=== PATIENT | female | born 1955 | race Caucasian/White ===

== ENCOUNTER → 2017-12-05 | Outpatient (CLI) | payer OTHER ==
[~2017-12-05] MED LIST: CEFDINIR300 MG PO; DICYCLOMINE HCL20 MG PO; DICYCLOMINE HYD10 MG PO; DILANTIN100 MG PO; KEPPRA1000 MG PO; KEPPRA500 MG PO; LEVOTHYROXINE50 MCG PO; OXYBUTYNIN5 MG PO; PRILOSEC20 M1 PO; TEGRETOL-XR 40400 MG PO; VITAMIN D-32000 UNI1 PO; XANAX0.25 MG PO
[2017-12-05 17:26] LABS: BASO % 0.8 % (0.0-1.0); EOS # 0.2 10*3/uL (0.0-0.4); EOS % 4.6 % (1.0-4.0); HEMATOCRIT 36.2 % (37.0-47.0); HEMOGLOBIN 12.3 g/dl (12.0-16.0); LYMPH # 1.5 10*3/uL (1.3-4.4); LYMPH % 30.8 % (27.0-41.0); MEAN CELL VOLUME 92.8 fl (81.0-99.0); MEAN CORPUSCULAR HGB 31.5 pg (27.0-31.0); MEAN PLATELET VOLUME 10.4 fl (9.6-12.3); MONO # 0.7 10*3/uL (0.1-1.0); MONO % 13.1 % (3.0-9.0); NEUT # 2.5 10*3/uL (2.3-7.9); NEUT % 50.5 % (47.0-73.0); PLATELET COUNT AUTOMATED 248 10*3/uL (130-400); RED CELL DISTRI WIDTH 12.6 % (0-14.5); RETICULOCYTE % 0.82 % (0.50-2.50)
[2017-12-05 17:30] LABS: BILIRUBIN NEGATIVE (NEGATIVE); BLOOD NEGATIVE (NEGATIVE); CLARITY CLEAR (CLEAR); COLOR YELLOW (YELLOW); GLUCOSE NEGATIVE (NEGATIVE); KETONE NEGATIVE (NEGATIVE); LEUKO ESTERASE NEGATIVE (NEGATIVE); NITRITE NEGATIVE (NEGATIVE); PH 5.5 (5.0-9.0); UROBILINOGEN 0.2 E.U./dl (0.2-1.0)
[2017-12-05 17:42] LABS: ALBUMIN 3.8 gm/dl (3.1-4.5); ALKALINE PHOSPHATASE 135 U/L (45-117); BUN 17 mg/dl (7-24); CHLORIDE 96 mmol/L (98-107); CHOLESTEROL 255 mg/dL (<200); CREATININE 0.68 mg/dL (0.55-1.02); GAMMA GLUTAMYL TRANSPEPTIDASE 55 U/L (5-55); HDL CHOLESTEROL 82 mg/dl (40-60); IRON 99 ug/dL (50-170); LDL CHOLESTEROL 142 mg/dL (9-159); POTASSIUM 3.9 mmol/L (3.5-5.1); SGOT/AST 13 IU/L (3-35); SGPT/ALT 18 U/L (12-78); SODIUM 130 mmol/L (136-145); T3 UPTAKE 30 % (31-39); THYROXINE (T4) TOTAL 6.7 ug/dl (4.8-13.9); TOTAL IRON BINDING CAPACITY 342 ug/dl (250-450); TRIGLYCERIDES 157 mg/dl (<150); URIC ACID 1.5 mg/dL (2.6-6.0); VLDL CHOLESTEROL 31 mg/dL (6-40)
[2017-12-05 17:44] LABS: WBC 0-2 wbc/hpf (0-5)
[2017-12-05 17:49] LABS: FERRITIN 18.9 ng/mL (10.0-291.0); VITAMIN D, 25-HYDROXY 21.4 ng/mL (30-100)
[2017-12-06 06:16] LABS: HEPATITIS B SURFACE AG Negative (Negative); HEPATITIS C VIRUS ANTIBODY <0.1 s/co (0.0-0.9); HIV 1+2 AB + HIV1 P24 AG Non Reactive (Non Reactive)
[2017-12-06 08:07] LABS: CARBAMAZEPINE (TEGRETOL) TOTAL 15.8 ug/ml (4-12)
[2017-12-06 08:14] LABS: RHEUMATOID ARTHRITIS FACTOR <10.0 IU/mL (0.0-13.9)
[2017-12-06 14:09] LABS: ANTI-DSDNA ANTIBODIES 096339 <1 IU/mL (0-9)
[2017-12-09 01:08] LABS: LEVETIRACETAM (KEPPRA) 716936 None Detected ug/mL (10.0-40.0)
== END | disposition home or self-care (01) ==
LOC: LAB 16:23
PROVIDERS: Family Medicine
DX: E55.9 Vitamin D deficiency, unspecified (principal); R53.83 Other fatigue; R79.89 Other specified abnormal findings of blood chemistry

== ENCOUNTER 2017-12-06 09:40 | Inpatient (IN) | payer OTHER ==
[~2017-12-06] VITALS: Ht 165.1 cm; Wt 66.4 kg
[2017-12-06 09:49] VITALS: BP 111/66
[2017-12-06 11:30] LABS: BASO % 0.5 % (0.0-1.0); EOS # 0.1 10*3/uL (0.0-0.4); EOS % 1.7 % (1.0-4.0); HEMATOCRIT 38.3 % (37.0-47.0); HEMOGLOBIN 13.1 g/dl (12.0-16.0); LYMPH # 1.2 10*3/uL (1.3-4.4); LYMPH % 15.9 % (27.0-41.0); MEAN CELL VOLUME 91.4 fl (81.0-99.0); MEAN CORPUSCULAR HGB 31.3 pg (27.0-31.0); MEAN CORPUSCULAR HGB CONC 34.2 g/dl (33.0-37.0); MEAN PLATELET VOLUME 10.1 fl (9.6-12.3); MONO # 0.7 10*3/uL (0.1-1.0); MONO % 9.2 % (3.0-9.0); NEUT # 5.5 10*3/uL (2.3-7.9); NEUT % 72.4 % (47.0-73.0); PLATELET COUNT AUTOMATED 264 10*3/uL (130-400); RED BLOOD COUNT 4.19 10*6/uL (4.10-5.10); RED CELL DISTRI WIDTH 12.6 % (0-14.5); WHITE BLOOD COUNT 7.6 10*3/uL (4.8-10.8)
[2017-12-06 11:39] LABS: ACT PARTIAL THROMBO TIME 23.6 SECONDS (20.8-31.5)
[2017-12-06 11:47] LABS: ALKALINE PHOSPHATASE 147 U/L (45-117); BUN 12 mg/dl (7-24); CHLORIDE 99 mmol/L (98-107); CREATININE 0.67 mg/dL (0.55-1.02); LIPASE 191 U/L (73-393); POTASSIUM 3.9 mmol/L (3.5-5.1); SGOT/AST 14 IU/L (3-35); SGPT/ALT 17 U/L (12-78); SODIUM 130 mmol/L (136-145); TOTAL PROTEIN 8.1 gm/dL (6.4-8.2)
[2017-12-06 11:48] LABS: TROPONIN I < 0.015 ng/ml (<0.045)
[2017-12-06 12:09] LABS: BILIRUBIN NEGATIVE (NEGATIVE); BLOOD NEGATIVE (NEGATIVE); CLARITY CLOUDY (CLEAR); COLOR YELLOW (YELLOW); GLUCOSE NEGATIVE (NEGATIVE); KETONE NEGATIVE (NEGATIVE); LEUKO ESTERASE TRACE (NEGATIVE); NITRITE NEGATIVE (NEGATIVE); UROBILINOGEN 0.2 E.U./dl (0.2-1.0)
[2017-12-06] MEDS ORDERED: KEPPRA1000 MG PO (12:30)
[2017-12-06 12:31] LABS: BACTERIA 1+; EPITHELIAL CELLS 40-50
[2017-12-06] MEDS ORDERED: KEPPRA500 MG PO (12:31)
[2017-12-06] MEDS ORDERED: DILANTIN100 MG PO (12:32)
[2017-12-06] MEDS ORDERED: TEGRETOL-XR 40400 MG PO (12:32)
[2017-12-06] MEDS ORDERED: LEVOTHYROXINE50 MCG PO (12:33)
[2017-12-06] MEDS ORDERED: PRILOSEC20 M1 PO (12:33)
[2017-12-06] MEDS ORDERED: XANAX0.25 MG PO ×2 (12:34→14:40)
[2017-12-06] MEDS ORDERED: OXYBUTYNIN5 MG PO (12:37)
[2017-12-06 12:51] VITALS: BP 112/358
[2017-12-06 13:10] VITALS: BP 104/54
[2017-12-06] MEDS ORDERED: CEFDINIR300 MG PO (14:44)
[2017-12-06] MEDS ORDERED: DICYCLOMINE HCL20 MG PO (14:44)
[2017-12-06 15:21] LABS: URINE AMPHETAMINES < 1000 (1000ng/ml); URINE BARBITURATES < 200 (200ng/ml); URINE BENZODIAZEPINES < 200 (200ng/ml); URINE CANNABINOIDS (THC) < 50 (50ng/ml); URINE COCAINE < 300 (300ng/ml); URINE METHADONE < 300 (300ng/ml); URINE OPIATES < 300 (300ng/ml)
[2017-12-06 15:30] LABS: URINE PHENCYCLIDINE < 25 (25ng/ml)
[2017-12-06 16:00] VITALS: BP 136/68
[2017-12-06 20:00] VITALS: BP 144/50
[2017-12-07] VITALS: BP 123/96; BP 126/96
[2017-12-07 07:24] LABS: BASO % 0.5 % (0.0-1.0); EOS # 0.2 10*3/uL (0.0-0.4); EOS % 4.2 % (1.0-4.0); HEMATOCRIT 29.2 % (37.0-47.0); HEMOGLOBIN 9.5 g/dl (12.0-16.0); LYMPH # 0.9 10*3/uL (1.3-4.4); LYMPH % 21.4 % (27.0-41.0); MEAN CELL VOLUME 96.1 fl (81.0-99.0); MEAN CORPUSCULAR HGB 31.3 pg (27.0-31.0); MEAN CORPUSCULAR HGB CONC 32.5 g/dl (33.0-37.0); MEAN PLATELET VOLUME 10.7 fl (9.6-12.3); MONO # 0.7 10*3/uL (0.1-1.0); NEUT # 2.4 10*3/uL (2.3-7.9); NEUT % 57.7 % (47.0-73.0); PLATELET COUNT AUTOMATED 178 10*3/uL (130-400); RED BLOOD COUNT 3.04 10*6/uL (4.10-5.10); RED CELL DISTRI WIDTH 12.9 % (0-14.5); WHITE BLOOD COUNT 4.1 10*3/uL (4.8-10.8)
[2017-12-07 07:44] LABS: ACT PARTIAL THROMBO TIME 23.8 SECONDS (20.8-31.5); ALBUMIN 2.8 gm/dl (3.1-4.5); ALKALINE PHOSPHATASE 116 U/L (45-117); BUN 6 mg/dl (7-24); CHLORIDE 112 mmol/L (98-107); CREATININE 0.46 mg/dL (0.55-1.02); FREE T4 0.63 ng/dl (0.76-1.46); INTERNATIONAL NORM RATIO 1.1 (2.0-3.5); PHOSPHOROUS 2.3 mg/dL (2.5-4.9); SGOT/AST 14 IU/L (3-35); SGPT/ALT 14 U/L (12-78)
[2017-12-07 07:58] LABS: CARBAMAZEPINE (TEGRETOL) TOTAL 5.2 ug/ml (4-12); PHENYTOIN (DILANTIN) 13.5 ug/ml (10-20)
[2017-12-07 08:00] VITALS: BP 113/57
[2017-12-07 08:22] LABS: POTASSIUM 3.2 mmol/L (3.5-5.1); SODIUM 141 mmol/L (136-145)
[2017-12-07 12:00] VITALS: BP 133/61
[2017-12-07] MEDS ORDERED: DICYCLOMINE HYD10 MG PO (12:57)
[2017-12-07] MEDS ORDERED: VITAMIN D-32000 UNI1 PO (12:58)
[2017-12-07] MEDS ORDERED: TEGRETOL-XR 40400 MG PO (12:58)
== END 2017-12-07 16:45 | disposition home or self-care (01) | DRG 917 ==
LOC: ED 09:40 → 5E 12:43 → EDHOLD 12:43 → 5E 12:45
PROVIDERS: Internal Medicine; Nurse Practitioner Family
PROC: 05H933Z Insertion of Infusion Device into Right Brachial Vein, Percutaneous Approach (ICD-10-PCS; principal; 2017-12-06)
PROC: B54MZZA Ultrasonography of Right Upper Extremity Veins, Guidance (ICD-10-PCS; 2017-12-06)
DX: T42.1X1A Poisoning by iminostilbenes, accidental (unintentional), initial encounter (principal); G93.41 Metabolic encephalopathy; E87.1 Hypo-osmolality and hyponatremia; I95.9 Hypotension, unspecified; N39.0 Urinary tract infection, site not specified; E86.0 Dehydration; R73.9 Hyperglycemia, unspecified; G40.909 Epilepsy, unspecified, not intractable, without status epilepticus; F12.90 Cannabis use, unspecified, uncomplicated; W18.39XA Other fall on same level, initial encounter; Z91.040 Latex allergy status; Z88.8 Allergy status to other drugs, medicaments and biological substances; Z79.899 Other long term (current) drug therapy; Z98.51 Tubal ligation status; Z82.5 Family history of asthma and other chronic lower respiratory diseases; Z82.49 Family history of ischemic heart disease and other diseases of the circulatory system; Z82.3 Family history of stroke; Z88.5 Allergy status to narcotic agent; Z85.3 Personal history of malignant neoplasm of breast; Z92.3 Personal history of irradiation; Z92.21 Personal history of antineoplastic chemotherapy; Z80.3 Family history of malignant neoplasm of breast; Z80.1 Family history of malignant neoplasm of trachea, bronchus and lung; Y93.89 Activity, other specified; Y92.89 Other specified places as the place of occurrence of the external cause; Y99.8 Other external cause status

== ENCOUNTER → 2021-09-19 | Outpatient (CLI) | payer OTHER ==
[2021-09-19 11:24] LABS: BASO % 0.6 % (0.0-1.0); EOS # 0.3 10*3/uL (0.0-0.4); EOS % 5.1 % (1.0-4.0); HEMATOCRIT 39.6 % (37.0-47.0); LYMPH # 1.4 10*3/uL (1.3-4.4); MEAN CELL VOLUME 94.7 fl (81.0-99.0); MEAN CORPUSCULAR HGB 30.9 pg (27.0-31.0); MEAN CORPUSCULAR HGB CONC 32.6 g/dl (33.0-37.0); MEAN PLATELET VOLUME 9.6 fl (9.6-12.3); MONO # 0.6 10*3/uL (0.1-1.0); MONO % 11.2 % (3.0-9.0); NEUT # 2.7 10*3/uL (2.3-7.9); NEUT % 53.9 % (47.0-73.0); PLATELET COUNT AUTOMATED 289 10*3/uL (130-400); RED BLOOD COUNT 4.18 10*6/uL (4.10-5.10); RED CELL DISTRI WIDTH 13.8 % (0-14.5); RETICULOCYTE % 0.78 % (0.50-2.50); WHITE BLOOD COUNT 4.9 10*3/uL (4.8-10.8)
[2021-09-19 11:26] LABS: BILIRUBIN Negative (Negative); BLOOD Negative (Negative); CLARITY Cloudy (Clear); COLOR Yellow (Yellow); GLUCOSE Negative (Negative); KETONE Negative (Negative); LEUKO ESTERASE Trace (Negative); NITRITE Negative (Negative); UROBILINOGEN 0.2 E.U./dl (0.0-1.0)
[2021-09-19 11:41] LABS: ALKALINE PHOSPHATASE 141 U/L (45-117); BUN 13 mg/dl (7-24); CHLORIDE 105 mmol/L (98-107); CHOLESTEROL 296 mg/dL (<200); GAMMA GLUTAMYL TRANSPEPTIDASE 71 U/L (5-55); IRON 84 ug/dL (50-170); LDL CHOLESTEROL 168 mg/dL (9-159); POTASSIUM 3.9 mmol/L (3.5-5.1); SGOT/AST 19 IU/L (3-35); SGPT/ALT 21 U/L (12-78); SODIUM 136 mmol/L (136-145); T3 UPTAKE 31 % (31-39); THYROXINE (T4) TOTAL 7.9 ug/dl (4.8-13.9); TOTAL IRON BINDING CAPACITY 393 ug/dl (250-450); TOTAL PROTEIN 8.2 gm/dL (6.4-8.2); TRIGLYCERIDES 134 mg/dl (<150); URIC ACID 2.5 mg/dL (2.6-6.0)
[2021-09-19 11:42] LABS: BACTERIA 4+; EPITHELIAL CELLS 16-20
[2021-09-19 12:07] LABS: VITAMIN D, 25-HYDROXY 30.1 ng/mL (30-100)
[2021-09-19 12:08] LABS: FERRITIN 7.5 ng/mL (10.0-291.0)
[2021-09-20 08:07] LABS: RHEUMATOID FACTOR 11.9 IU/mL (<14.0)
[2021-09-20 14:08] LABS: ANTI-DSDNA ANTIBODIES <1 IU/mL (0-9)
== END | disposition home or self-care (01) ==
LOC: LAB 10:50
PROVIDERS: ATTEND Family Medicine
DX: R79.89 Other specified abnormal findings of blood chemistry (principal); R53.83 Other fatigue; E78.5 Hyperlipidemia, unspecified; R74.8 Abnormal levels of other serum enzymes; E55.9 Vitamin D deficiency, unspecified

== ENCOUNTER → 2022-04-02 | Outpatient (CLI) | payer OTHER ==
[2022-04-02 12:13] LABS: BUN 17 mg/dl (7-24)
[2022-04-02 12:28] LABS: CARBAMAZEPINE (TEGRETOL) TOTAL 8.8 ug/ml (4-12); PHENYTOIN (DILANTIN) 20.5 ug/ml (10-20)
== END | disposition home or self-care (01) ==
LOC: LAB 11:31
PROVIDERS: ATTEND Specialist
DX: R42 Dizziness and giddiness (principal)

== ENCOUNTER → 2022-09-11 | Outpatient (CLI) | payer OTHER ==
[2022-09-11 11:19] LABS: BASO % 0.7 % (0.0-1.0); EOS # 0.2 10*3/uL (0.0-0.4); EOS % 3.7 % (1.0-4.0); HEMATOCRIT 35.1 % (37.0-47.0); LYMPH # 1.5 10*3/uL (1.3-4.4); LYMPH % 27.4 % (27.0-41.0); MEAN CELL VOLUME 94.4 fl (81.0-99.0); MEAN CORPUSCULAR HGB 30.1 pg (27.0-31.0); MEAN CORPUSCULAR HGB CONC 31.9 g/dl (33.0-37.0); MEAN PLATELET VOLUME 9.3 fl (9.6-12.3); MONO # 0.6 10*3/uL (0.1-1.0); MONO % 11.5 % (3.0-9.0); NEUT % 56.5 % (47.0-73.0); PLATELET COUNT AUTOMATED 265 10*3/uL (130-400); RED BLOOD COUNT 3.72 10*6/uL (4.10-5.10); RED CELL DISTRI WIDTH 14.1 % (0-14.5); RETICULOCYTE % 0.92 % (0.50-2.50); WHITE BLOOD COUNT 5.4 10*3/uL (4.8-10.8)
[2022-09-11 11:32] LABS: BILIRUBIN Negative (Negative); BLOOD Negative (Negative); CLARITY Cloudy (Clear); COLOR Yellow (Yellow); GLUCOSE Negative (Negative); KETONE Negative (Negative); LEUKO ESTERASE Trace (Negative); NITRITE Positive (Negative); UROBILINOGEN 0.2 E.U./dl (0.0-1.0)
[2022-09-11 11:38] LABS: ALKALINE PHOSPHATASE 121 U/L (46-116); BUN 13 mg/dl (9-23); CHLORIDE 108 mmol/L (98-107); CHOLESTEROL 231 mg/dL (<200); GAMMA GLUTAMYL TRANSPEPTIDASE 50 U/L (0-73); LDL CHOLESTEROL 116 mg/dL (9-159); POTASSIUM 3.9 mmol/L (3.4-5.1); SGPT/ALT 12 U/L (10-49); T3 UPTAKE 20.1 % (22.4-36.7); THYROID STIM HORMONE (HS) 1.604 uIU/ml (0.550-4.780); TRIGLYCERIDES 83 mg/dl (<150)
[2022-09-11 12:19] LABS: BACTERIA 4+
[2022-09-11 12:43] LABS: VITAMIN D, 25-HYDROXY 44.1 ng/mL (30-100)
== END | disposition home or self-care (01) ==
LOC: LAB 11:00
PROVIDERS: ATTEND Family Medicine
DX: E55.9 Vitamin D deficiency, unspecified (principal); E78.5 Hyperlipidemia, unspecified; R79.89 Other specified abnormal findings of blood chemistry; R53.83 Other fatigue; R74.8 Abnormal levels of other serum enzymes

== ENCOUNTER → 2023-01-16 | Outpatient (CLI) | payer OTHER | END | disposition home or self-care (01) | LOC: US 01:47 | PROVIDERS: ATTEND Family Medicine | DX: N26.1 Atrophy of kidney (terminal) (principal) ==

== ENCOUNTER → 2023-08-08 | Outpatient (CLI) | payer OTHER ==
[2023-08-08 12:55] LABS: BASO % 0.6 % (0.0-1.0); EOS # 0.2 10*3/uL (0.0-0.4); EOS % 4.4 % (1.0-4.0); LYMPH # 1.5 10*3/uL (1.3-4.4); LYMPH % 30.3 % (27.0-41.0); MEAN CORPUSCULAR HGB 31.1 pg (27.0-31.0); MEAN CORPUSCULAR HGB CONC 30.8 g/dl (33.0-37.0); MEAN PLATELET VOLUME 9.8 fl (9.6-12.3); MONO # 0.5 10*3/uL (0.1-1.0); MONO % 9.2 % (3.0-9.0); NEUT # 2.7 10*3/uL (2.3-7.9); NEUT % 54.9 % (47.0-73.0); PLATELET COUNT AUTOMATED 280 10*3/uL (130-400); RED BLOOD COUNT 3.96 10*6/uL (4.10-5.10); RED CELL DISTRI WIDTH 12.7 % (0-14.5)
[2023-08-08 13:30] LABS: URIC ACID 3.1 mg/dL (3.1-7.8)
[2023-08-08 13:31] LABS: ALKALINE PHOSPHATASE 132 U/L (46-116); BUN 9 mg/dl (9-23); CHLORIDE 107 mmol/L (98-107); FREE T4 1.01 ng/dl (0.89-1.76); LIPASE 32 U/L (12-53); POTASSIUM 3.7 mmol/L (3.4-5.1); SGPT/ALT 12 U/L (5-49); T3 UPTAKE 24.2 % (22.4-36.7); TOTAL PROTEIN 7.5 gm/dL (6.0-8.0)
[2023-08-08 13:44] LABS: VITAMIN D, 25-HYDROXY 38.1 ng/mL (30-100)
[2023-08-08 13:46] LABS: BILIRUBIN Negative (Negative); BLOOD Negative (Negative); CLARITY Clear (Clear); COLOR Yellow (Yellow); GLUCOSE Negative (Negative); KETONE Negative (Negative); LEUKO ESTERASE Trace (Negative); NITRITE Positive (Negative); UROBILINOGEN 0.2 E.U./dl (0.0-1.0)
[2023-08-08 13:58] LABS: BACTERIA 4+
[2023-08-09 08:09] LABS: TOTAL PROTEIN, SERUM 7.2 g/dL (6.0-8.5)
[2023-08-09 14:08] LABS: t-TRANSGLUTAMINASE (tTG) IGA <2 U/mL (0-3); t-TRANSGLUTAMINASE (tTG) IgG 2 U/mL (0-5)
[2023-08-09 15:07] LABS: A/G RATIO 1.2 (0.7-1.7); ALBUMIN 3.9 g/dL (2.9-4.4); ALPHA-1-GLOBULIN 0.3 g/dL (0.0-0.4); ALPHA-2-GLOBULIN 0.8 g/dL (0.4-1.0); BETA GLOBULIN 1.1 g/dL (0.7-1.3); GAMMA GLOBULIN 1.1 g/dL (0.4-1.8); GLOBULIN, TOTAL 3.3 g/dL (2.2-3.9); M-SPIKE Not Observed g/dL (Not Observed)
== END | disposition home or self-care (01) ==
LOC: LAB 12:04
PROVIDERS: Family Medicine; ATTEND Nurse Practitioner Family
DX: J44.9 Chronic obstructive pulmonary disease, unspecified (principal); R79.89 Other specified abnormal findings of blood chemistry; R53.83 Other fatigue; E78.5 Hyperlipidemia, unspecified; E55.9 Vitamin D deficiency, unspecified; R19.7 Diarrhea, unspecified; K85.90 Acute pancreatitis without necrosis or infection, unspecified; R63.4 Abnormal weight loss

== ENCOUNTER → 2023-08-12 | Outpatient (CLI) | payer OTHER | END | disposition home or self-care (01) | LOC: LAB 11:17 | PROVIDERS: ATTEND Nurse Practitioner Family | DX: R19.7 Diarrhea, unspecified (principal); R10.9 Unspecified abdominal pain ==

== ENCOUNTER 2023-09-21 09:18 | Emergency (ER) | payer OTHER ==
[~2023-09-21] VITALS: Ht 165.1 cm; Wt 49.0 kg
[2023-09-21 09:24] VITALS: BP 99/65
[2023-09-21] MEDS ORDERED: FLUONAZOLE150 M1 PO (09:26)
[2023-09-21] MEDS ORDERED: DOXYCYCLINE HY100 M3 PO (09:26)
[2023-09-21] MEDS ORDERED: OMEPRAZOLE MAGN20 MG PO (09:27)
[2023-09-21] MEDS ORDERED: LEVOTHYROXINE75 MCG PO (09:27)
[2023-09-21] MEDS ORDERED: LEVETIRACETAM1000 M1 PO (09:27)
[2023-09-21] MEDS ORDERED: ALPRAZOLAM0.25 M2 PO (09:28)
[2023-09-21] MEDS ORDERED: PROVENTIL HFA6.7 GM INH (09:31)
[2023-09-21] MEDS ORDERED: predniSONE 20 MG TAB PO ONE (09:35)
[2023-09-21] MEDS ORDERED: FAMOTIDINE 20 MG TAB PO ONE (09:35)
[2023-09-21] MEDS ORDERED: PREDNISONE50 MG PO (11:12)
[2023-09-21] MEDS ORDERED: PEPCID40 MG PO (11:12)
== END 2023-09-21 11:20 | disposition home or self-care (01) ==
LOC: ED 09:18
DX: L27.0 Generalized skin eruption due to drugs and medicaments taken internally (principal); T36.4X5A Adverse effect of tetracyclines, initial encounter; T37.8X5A Adverse effect of other specified systemic anti-infectives and antiparasitics, initial encounter; F17.200 Nicotine dependence, unspecified, uncomplicated; Z88.5 Allergy status to narcotic agent; Z88.8 Allergy status to other drugs, medicaments and biological substances; Z91.040 Latex allergy status; Z79.899 Other long term (current) drug therapy; Z98.51 Tubal ligation status; Z98.890 Other specified postprocedural states; Y92.89 Other specified places as the place of occurrence of the external cause

== ENCOUNTER → 2023-10-15 | Outpatient (CLI) | payer OTHER ==
[~2023-10-15] MED LIST changes: +ALPRAZOLAM0.25 M2 PO; +DOXYCYCLINE HY100 M3 PO; +FLUONAZOLE150 M1 PO; +LEVETIRACETAM1000 M1 PO; +LEVOTHYROXINE75 MCG PO; +OMEPRAZOLE MAGN20 MG PO; +PEPCID40 MG PO; +PREDNISONE50 MG PO; +PROVENTIL HFA6.7 GM INH
[2023-10-15 12:11] LABS: HEMATOCRIT 39.3 % (37.0-47.0); MEAN CELL VOLUME 97.5 fl (81.0-99.0); MEAN CORPUSCULAR HGB 30.8 pg (27.0-31.0); MEAN CORPUSCULAR HGB CONC 31.6 g/dl (33.0-37.0); MEAN PLATELET VOLUME 9.4 fl (9.6-12.3); PLATELET COUNT AUTOMATED 282 10*3/uL (130-400); RED BLOOD COUNT 4.03 10*6/uL (4.10-5.10); RED CELL DISTRI WIDTH 13.1 % (0-14.5); RETICULOCYTE % 0.73 % (0.50-2.50); WHITE BLOOD COUNT 4.8 10*3/uL (4.8-10.8)
[2023-10-15 12:21] LABS: BILIRUBIN Negative (Negative); BLOOD Negative (Negative); CLARITY Cloudy (Clear); COLOR Dark Yellow (Yellow); GLUCOSE Negative (Negative); KETONE Trace (Negative); LEUKO ESTERASE 2+ (Negative); NITRITE Positive (Negative); PH 5.5 (4.5-8.0); SPECIFIC GRAVITY >= 1.030 (1.001-1.030); UROBILINOGEN 0.2 E.U./dl (0.0-1.0)
[2023-10-15 12:50] LABS: ALKALINE PHOSPHATASE 131 U/L (46-116); BUN 12 mg/dl (9-23); CHLORIDE 106 mmol/L (98-107); CHOLESTEROL 274 mg/dL (<200); GAMMA GLUTAMYL TRANSPEPTIDASE 49 U/L (0-73); LDL CHOLESTEROL 142 mg/dL (9-159); POTASSIUM 3.7 mmol/L (3.4-5.1); SGPT/ALT 14 U/L (5-49); T3 UPTAKE 22.3 % (22.4-36.7); THYROXINE (T4) TOTAL 5.4 ug/dl (4.5-10.9); TOTAL PROTEIN 7.7 gm/dL (6.0-8.0); TRIGLYCERIDES 126 mg/dl (<150); URIC ACID 2.8 mg/dL (3.1-7.8)
[2023-10-15 12:57] LABS: BACTERIA 4+; WBC TNTC wbc/hpf (0-5)
[2023-10-15 13:22] LABS: BASOPHILS 1 % (0-1); PLATELET SUFFICIENCY NORMAL (NORMAL); TOTAL CELLS COUNTED 100 #CELLS
[2023-10-15 13:30] LABS: VITAMIN D, 25-HYDROXY 41.9 ng/mL (30-100)
[2023-10-15 14:31] LABS: PHENYTOIN (DILANTIN) 18.8 ug/ml (10-20)
[2023-10-16 02:06] LABS: TOTAL PROTEIN, SERUM 7.1 g/dL (6.0-8.5)
[2023-10-16 06:08] LABS: HBSAG Negative (Negative); HEP B CORE AB, IGM Negative (Negative); HEPATITIS C ANTIBODY Non Reactive (Non Reactive)
[2023-10-16 15:08] LABS: A/G RATIO 0.9 (0.7-1.7); ALBUMIN 3.4 g/dL (2.9-4.4); ALPHA-1-GLOBULIN 0.3 g/dL (0.0-0.4); BETA GLOBULIN 1.2 g/dL (0.7-1.3); GAMMA GLOBULIN 1.2 g/dL (0.4-1.8); GLOBULIN, TOTAL 3.7 g/dL (2.2-3.9)
== END | disposition home or self-care (01) ==
LOC: LAB 11:14
PROVIDERS: ATTEND Family Medicine
DX: E78.5 Hyperlipidemia, unspecified (principal); R79.89 Other specified abnormal findings of blood chemistry; R53.83 Other fatigue; E55.9 Vitamin D deficiency, unspecified

== ENCOUNTER → 2023-11-20 | Outpatient (CLI) | payer OTHER ==
[2023-11-20 11:18] LABS: BILIRUBIN Negative (Negative); BLOOD Negative (Negative); CLARITY Clear (Clear); COLOR Yellow (Yellow); GLUCOSE Negative (Negative); KETONE Negative (Negative); LEUKO ESTERASE Negative (Negative); NITRITE Positive (Negative); UROBILINOGEN 0.2 E.U./dl (0.0-1.0)
[2023-11-20 11:35] LABS: RBC 0-2 rbc/hpf (0-2)
[2023-11-20 11:36] LABS: BACTERIA 4+
== END | disposition home or self-care (01) ==
LOC: LAB 10:39
PROVIDERS: ATTEND Family Medicine
DX: E78.5 Hyperlipidemia, unspecified (principal); R79.89 Other specified abnormal findings of blood chemistry; R53.83 Other fatigue

== ENCOUNTER → 2023-12-06 | Outpatient (CLI) | payer OTHER ==
[2023-12-06 09:50] LABS: BILIRUBIN Negative (Negative); BLOOD Negative (Negative); CLARITY Clear (Clear); COLOR Yellow (Yellow); GLUCOSE Negative (Negative); KETONE Negative (Negative); LEUKO ESTERASE Negative (Negative); NITRITE Negative (Negative); SPECIFIC GRAVITY 1.015 (1.001-1.030); UROBILINOGEN 0.2 E.U./dl (0.0-1.0)
[2023-12-06 09:58] LABS: BACTERIA TRACE; WBC 0-2 wbc/hpf (0-5)
== END | disposition home or self-care (01) ==
LOC: LAB 09:20
PROVIDERS: ATTEND Family Medicine
DX: E79.89 Other specified disorders of purine and pyrimidine metabolism (principal); R53.83 Other fatigue; E78.5 Hyperlipidemia, unspecified

== ENCOUNTER → 2024-07-10 | Outpatient (CLI) | payer OTHER ==
[2024-07-10 10:09] LABS: BUN 11 mg/dl (9-23); CHLORIDE 103 mmol/L (98-107); POTASSIUM 4.5 mmol/L (3.4-5.1)
[2024-07-10 10:12] LABS: CARBAMAZEPINE (TEGRETOL) TOTAL 10.4 ug/ml (4-12)
== END | disposition home or self-care (01) ==
LOC: LAB 09:21
PROVIDERS: ATTEND Psychiatry & Neurology Neurology
DX: R56.9 Unspecified convulsions (principal)

== ENCOUNTER 2024-09-03 17:20 | Inpatient (IN) | payer OTHER ==
[~2024-09-03] VITALS: Ht 165.1 cm; Wt 49.0 kg
[2024-09-03 17:20] VITALS: BP 121/49
[~2024-09-03 17:20] MED LIST changes: +LEVOFLOXACIN750 M2 PO
[2024-09-03] MEDS ORDERED: MORPHINE Sulfate 2 MG/ML SYR IV ONE (17:25)
[2024-09-03] MEDS ORDERED: SODIUM CHLORIDE 0.9% 1,000 ML IV ONE ×2 (17:25→20:30)
[2024-09-03] MEDS ORDERED: Ondansetron Hydrochloride 4 MG/2 ML VIAL IV ONE (17:25)
[2024-09-03 17:53] LABS: BASO % 0.2 % (0.0-1.0); HEMATOCRIT 35.7 % (37.0-47.0); MEAN CELL VOLUME 94.2 fl (81.0-99.0); MEAN CORPUSCULAR HGB 30.3 pg (27.0-31.0); MEAN CORPUSCULAR HGB CONC 32.2 g/dl (33.0-37.0); MEAN PLATELET VOLUME 8.5 fl (9.6-12.3); MONO # 0.8 10*3/uL (0.1-1.0); NEUT # 11.6 10*3/uL (2.3-7.9); NEUT % 87.5 % (47.0-73.0); PLATELET COUNT AUTOMATED 596 10*3/uL (130-400); RED BLOOD COUNT 3.79 10*6/uL (4.10-5.10); RED CELL DISTRI WIDTH 13.7 % (0-14.5); WHITE BLOOD COUNT 13.2 10*3/uL (4.8-10.8)
[2024-09-03 18:15] LABS: ALKALINE PHOSPHATASE 140 U/L (46-116); BUN 12 mg/dl (9-23); CHLORIDE 97 mmol/L (98-107); LIPASE 527 U/L (12-53); POTASSIUM 3.6 mmol/L (3.4-5.1); SGPT/ALT 10 U/L (5-49); TOTAL PROTEIN 7.6 gm/dL (6.0-8.0)
[2024-09-03 18:36] VITALS: BP 138/52
[2024-09-03] MEDS ORDERED: KEPPRA1000 MG PO (18:48)
[2024-09-03] MEDS ORDERED: KEPPRA500 MG PO (18:49)
[2024-09-03] MEDS ORDERED: XANAX0.25 MG PO (18:49)
[2024-09-03] MEDS ORDERED: DILANTIN100 MG PO (18:51)
[2024-09-03 19:09] LABS: PHENYTOIN (DILANTIN) 9.5 ug/ml (10-20)
[2024-09-03 19:11] LABS: CARBAMAZEPINE (TEGRETOL) TOTAL 19.3 ug/ml (4-12)
[2024-09-03] MEDS ORDERED: ACETAMINOPHEN 650 MG SUPP R PRN (19:55)
[2024-09-03] MEDS ORDERED: ACETAMINOPHEN 325 MG TAB PO PRN (19:55)
[2024-09-03] MEDS ORDERED: BISACODYL 10 MG SUPP R PRN (19:55)
[2024-09-03] MEDS ORDERED: TEMAZEPAM 15 MG CAP PO PRN (19:55)
[2024-09-03] MEDS ORDERED: Ondansetron Hydrochloride 4 MG/2 ML VIAL IV PRN (19:55)
[2024-09-03] MEDS ORDERED: Magnesium Hydroxide 30 ML UDC PO PRN (19:55)
[2024-09-03] MEDS ORDERED: BISACODYL 5 MG TAB PO PRN (19:55)
[2024-09-03 20:39] VITALS: BP 126/50
[2024-09-03] MEDS ORDERED: Albuterol Sulf/Ipratropium 3 ML VIAL NEB SCH (21:00)
[2024-09-03] MEDS ORDERED: Ketorolac Tromethamine 15 MG/ML VIAL IV PRN (21:15)
[2024-09-03] MEDS ORDERED: Vancomycin Hydrochloride 1,000 MG in SODIUM CHLORIDE 0.9% 250 ML IV SCH (21:20)
[2024-09-03] MEDS ORDERED: cefTRIAXone Sodium 10 ML IV ONE (21:35)
[2024-09-03] MEDS ORDERED: LEVETIRACETAM 500 MG TAB PO SCH ×2 (22:00)
[2024-09-03] MEDS ORDERED: GUAIFENESIN 600 MG TAB ER PO SCH (22:00)
[2024-09-03] MEDS ORDERED: Oxybutynin Chloride 5 MG TAB PO SCH (22:00)
[2024-09-03] MEDS ORDERED: Vancomycin Hydrochloride 500 MG in SODIUM CHLORIDE 0.9% 100 ML IV SCH (22:00)
[2024-09-03] MEDS ORDERED: carBAMazepine XR 100 MG TAB PO SCH (22:00)
[2024-09-03] MEDS ORDERED: ALPRAZolam 0.25 MG TAB PO SCH (22:00)
[2024-09-03] MEDS ORDERED: BENZONATATE 100 MG CAP PO PRN (22:05)
[2024-09-03 22:38] VITALS: BP 133/57
[2024-09-03] MEDS ORDERED: AZITHROMYCIN 250 ML IV SCH (23:00)
[2024-09-04] VITALS: BP 143/71
[2024-09-04 00:25] LABS: BILIRUBIN Negative (Negative); BLOOD Negative (Negative); CLARITY Clear (Clear); COLOR Yellow (Yellow); GLUCOSE Negative (Negative); KETONE Negative (Negative); LEUKO ESTERASE Negative (Negative); NITRITE Negative (Negative); PH 6.5 (4.5-8.0); UROBILINOGEN 0.2 E.U./dl (0.0-1.0)
[2024-09-04 00:57] LABS: EPITHELIAL CELLS 41-50
[2024-09-04 00:58] LABS: BACTERIA TRACE
[2024-09-04] MEDS ORDERED: Pantoprazole Sodium 40 MG VIAL IV SCH (06:00)
[2024-09-04 06:15] LABS: BASO % 0.1 % (0.0-1.0); EOS # 0.2 10*3/uL (0.0-0.4); EOS % 1.5 % (1.0-4.0); HEMATOCRIT 33.4 % (37.0-47.0); MEAN CELL VOLUME 95.2 fl (81.0-99.0); MEAN CORPUSCULAR HGB 30.2 pg (27.0-31.0); MEAN CORPUSCULAR HGB CONC 31.7 g/dl (33.0-37.0); MEAN PLATELET VOLUME 8.7 fl (9.6-12.3); MONO # 0.8 10*3/uL (0.1-1.0); MONO % 7.7 % (3.0-9.0); NEUT # 7.8 10*3/uL (2.3-7.9); NEUT % 80.8 % (47.0-73.0); PLATELET COUNT AUTOMATED 542 10*3/uL (130-400); RED BLOOD COUNT 3.51 10*6/uL (4.10-5.10); RED CELL DISTRI WIDTH 13.9 % (0-14.5); WHITE BLOOD COUNT 9.7 10*3/uL (4.8-10.8)
[2024-09-04] MEDS ORDERED: SODIUM CHLORIDE 0.9% 1,000 ML IV ONE (06:30)
[2024-09-04 06:38] LABS: ACT PARTIAL THROMBO TIME 27.8 SECONDS (20.0-32.1)
[2024-09-04 06:50] LABS: ALKALINE PHOSPHATASE 130 U/L (46-116); BUN 8 mg/dl (9-23); CHLORIDE 104 mmol/L (98-107); CHOLESTEROL 172 mg/dL (<200); FREE T4 0.82 ng/dl (0.89-1.76); LDL CHOLESTEROL 88 mg/dL (9-159); POTASSIUM 4.5 mmol/L (3.4-5.1); SGPT/ALT 10 U/L (5-49); TOTAL PROTEIN 6.7 gm/dL (6.0-8.0); TRIGLYCERIDES 103 mg/dl (<150)
[2024-09-04] MEDS ORDERED: Levothyroxine Sodium 75 MCG TAB PO SCH (07:00)
[2024-09-04 07:06] LABS: VITAMIN D, 25-HYDROXY 56.1 ng/mL (30-100)
[2024-09-04 07:14] LABS: LIPASE 893 U/L (12-53)
[2024-09-04] MEDS ORDERED: Albuterol Sulf/Ipratropium 3 ML VIAL NEB PRN (07:50)
[2024-09-04] MEDS ORDERED: LEVETIRACETAM 500 MG TAB PO SCH ×2 (07:51→18:00)
[2024-09-04 08:00] VITALS: BP 110/64
[2024-09-04] MEDS ORDERED: Enoxaparin Sodium 40 MG/0.4 ML SYR SC SCH (10:00)
[2024-09-04 12:00] VITALS: BP 122/53
[2024-09-04] MEDS ORDERED: AZITHROMYCIN 250 MG TAB PO SCH (14:00)
[2024-09-04] MEDS ORDERED: CEFDINIR 300 MG CAP PO SCH (14:00)
[2024-09-04 16:00] VITALS: BP 129/64
[2024-09-04 20:00] VITALS: BP 137/57
[2024-09-04] MEDS ORDERED: Ondansetron Hydrochloride 4 MG TAB PO PRN (21:00)
[2024-09-04] MEDS ORDERED: cefTRIAXone Sodium 1 GM in SYRINGE INFUSION 10 ML IV SCH (21:00)
[2024-09-05] VITALS: BP 122/73
[2024-09-05 04:00] VITALS: BP 122/73
[2024-09-05 05:55] LABS: BUN 8 mg/dl (9-23); CHLORIDE 104 mmol/L (98-107); POTASSIUM 3.9 mmol/L (3.4-5.1)
[2024-09-05 06:03] LABS: BASO % 0.3 % (0.0-1.0); EOS # 0.3 10*3/uL (0.0-0.4); EOS % 4.7 % (1.0-4.0); HEMATOCRIT 32.6 % (37.0-47.0); MEAN CELL VOLUME 92.6 fl (81.0-99.0); MEAN CORPUSCULAR HGB 29.8 pg (27.0-31.0); MEAN CORPUSCULAR HGB CONC 32.2 g/dl (33.0-37.0); MEAN PLATELET VOLUME 8.8 fl (9.6-12.3); MONO # 0.6 10*3/uL (0.1-1.0); MONO % 8.9 % (3.0-9.0); NEUT # 4.8 10*3/uL (2.3-7.9); NEUT % 68.3 % (47.0-73.0); PLATELET COUNT AUTOMATED 536 10*3/uL (130-400); RED BLOOD COUNT 3.52 10*6/uL (4.10-5.10)
[2024-09-05 08:00] VITALS: BP 137/61
[2024-09-05 12:00] VITALS: BP 137/64
[2024-09-05] MEDS ORDERED: carBAMazepine XR 100 MG TAB PO SCH (14:00)
[2024-09-05] MEDS ORDERED: Phenytoin Sodium, Extended 100 MG CAP PO SCH (14:00)
[2024-09-05 16:00] VITALS: BP 131/64
[2024-09-05 20:00] VITALS: BP 117/60
[2024-09-06] VITALS: BP 113/56
[2024-09-06 06:16] LABS: BASO % 0.5 % (0.0-1.0); EOS # 0.3 10*3/uL (0.0-0.4); EOS % 4.9 % (1.0-4.0); HEMATOCRIT 34.4 % (37.0-47.0); MEAN CELL VOLUME 93.5 fl (81.0-99.0); MEAN CORPUSCULAR HGB 30.2 pg (27.0-31.0); MEAN CORPUSCULAR HGB CONC 32.3 g/dl (33.0-37.0); MEAN PLATELET VOLUME 8.7 fl (9.6-12.3); MONO # 0.9 10*3/uL (0.1-1.0); MONO % 13.7 % (3.0-9.0); NEUT # 3.5 10*3/uL (2.3-7.9); NEUT % 55.4 % (47.0-73.0); PLATELET COUNT AUTOMATED 512 10*3/uL (130-400); RED BLOOD COUNT 3.68 10*6/uL (4.10-5.10); RED CELL DISTRI WIDTH 13.9 % (0-14.5); WHITE BLOOD COUNT 6.4 10*3/uL (4.8-10.8)
[2024-09-06 06:20] LABS: BUN 7 mg/dl (9-23); CHLORIDE 104 mmol/L (98-107); LIPASE 140 U/L (12-53); POTASSIUM 4.3 mmol/L (3.4-5.1)
[2024-09-06 08:00] VITALS: BP 119/74
[2024-09-06] MEDS ORDERED: Pantoprazole Sodium 40 MG TAB PO SCH (18:00)
== END 2024-09-06 12:55 | disposition home or self-care (01) | DRG 282 ==
LOC: ED 17:20 → 5E 19:29 → EDHOLD 19:29 → 5E 22:03 → EDHOLD 22:03 → 5E 22:03
PROVIDERS: Emergency Medicine; Student in an Organized Health Care Education/Training Program; ADMIT Internal Medicine; ATTEND Internal Medicine
DX: K85.90 Acute pancreatitis without necrosis or infection, unspecified (principal); J18.9 Pneumonia, unspecified organism; G90.9 Disorder of the autonomic nervous system, unspecified; E44.0 Moderate protein-calorie malnutrition; E87.1 Hypo-osmolality and hyponatremia; D72.828 Other elevated white blood cell count; D64.9 Anemia, unspecified; G40.909 Epilepsy, unspecified, not intractable, without status epilepticus; F03.90 Unspecified dementia, unspecified severity, without behavioral disturbance, psychotic disturbance, mood disturbance, and anxiety; I86.8 Varicose veins of other specified sites; R73.9 Hyperglycemia, unspecified; F17.200 Nicotine dependence, unspecified, uncomplicated; Z20.822 Contact with and (suspected) exposure to COVID-19; D75.839 Thrombocytosis, unspecified; Z88.1 Allergy status to other antibiotic agents; Z91.040 Latex allergy status; Z88.8 Allergy status to other drugs, medicaments and biological substances; Z91.09 Other allergy status, other than to drugs and biological substances; Z79.899 Other long term (current) drug therapy; Z79.01 Long term (current) use of anticoagulants; Z79.2 Long term (current) use of antibiotics; Z82.49 Family history of ischemic heart disease and other diseases of the circulatory system; Z68.1 Body mass index [BMI] 19.9 or less, adult; Z82.3 Family history of stroke; Z82.5 Family history of asthma and other chronic lower respiratory diseases; Z85.3 Personal history of malignant neoplasm of breast; Z80.1 Family history of malignant neoplasm of trachea, bronchus and lung

== ENCOUNTER → 2024-11-10 | Outpatient (CLI) | payer OTHER ==
[2024-11-10 10:23] LABS: HEMATOCRIT 34.6 % (37.0-47.0); MEAN CELL VOLUME 95.6 fl (81.0-99.0); MEAN CORPUSCULAR HGB 31.5 pg (27.0-31.0); MEAN CORPUSCULAR HGB CONC 32.9 g/dl (33.0-37.0); MEAN PLATELET VOLUME 9.4 fl (9.6-12.3); PLATELET COUNT AUTOMATED 262 10*3/uL (130-400); RED BLOOD COUNT 3.62 10*6/uL (4.10-5.10); RED CELL DISTRI WIDTH 13.9 % (0-14.5); RETICULOCYTE % 0.67 % (0.50-2.50); WHITE BLOOD COUNT 4.6 10*3/uL (4.8-10.8)
[2024-11-10 10:25] LABS: BILIRUBIN Negative (Negative); BLOOD Negative (Negative); CLARITY Clear (Clear); COLOR Yellow (Yellow); GLUCOSE Negative (Negative); KETONE Negative (Negative); LEUKO ESTERASE Negative (Negative); NITRITE Positive (Negative); PH 5.5 (4.5-8.0); SPECIFIC GRAVITY 1.015 (1.001-1.030); UROBILINOGEN 0.2 E.U./dl (0.0-1.0)
[2024-11-10 10:54] LABS: ALKALINE PHOSPHATASE 111 U/L (46-116); BACTERIA 3+; BUN 13 mg/dl (9-23); CHLORIDE 104 mmol/L (98-107); CHOLESTEROL 243 mg/dL (<200); GAMMA GLUTAMYL TRANSPEPTIDASE 34 U/L (0-73); LDL CHOLESTEROL 115 mg/dL (9-159); POTASSIUM 4.5 mmol/L (3.4-5.1); RBC 0-2 rbc/hpf (0-2); SGPT/ALT 9 U/L (5-49); THYROXINE (T4) TOTAL 6.2 ug/dl (4.5-10.9); TOTAL PROTEIN 7.2 gm/dL (6.0-8.0); TRIGLYCERIDES 81 mg/dl (<150); URIC ACID 3.5 mg/dL (3.1-7.8); VITAMIN D, 25-HYDROXY 38.8 ng/mL (30-100); WBC 0-2 wbc/hpf (0-5)
[2024-11-10 14:09] LABS: BASOPHILS 2 % (0-1); TOTAL CELLS COUNTED 100 #CELLS
[2024-11-10 14:13] LABS: PLATELET SUFFICIENCY NORMAL (NORMAL)
[2024-11-10 14:18] LABS: SPHEROCYTES FEW
[2024-11-11 05:06] LABS: HBsAG SCREEN Negative (Negative); HCV Ab Non Reactive (Non Reactive); HEP B CORE Ab, IgM Negative (Negative)
[2024-11-11 09:08] LABS: ANTI-DSDNA ANTIBODIES <1 IU/mL (0-9)
[2024-11-11 16:08] LABS: A/G RATIO 1.1 (0.7-1.7); ALBUMIN 3.5 g/dL (2.9-4.4); ALPHA-1-GLOBULIN 0.3 g/dL (0.0-0.4); ALPHA-2-GLOBULIN 0.8 g/dL (0.4-1.0); GAMMA GLOBULIN 1.2 g/dL (0.4-1.8); GLOBULIN, TOTAL 3.3 g/dL (2.2-3.9)
== END | disposition home or self-care (01) ==
LOC: LAB 09:29
PROVIDERS: ATTEND Family Medicine
DX: E78.5 Hyperlipidemia, unspecified (principal); R79.89 Other specified abnormal findings of blood chemistry; R53.83 Other fatigue; E55.9 Vitamin D deficiency, unspecified

== ENCOUNTER → 2025-06-01 | Outpatient (CLI) | payer OTHER ==
[2025-06-01 12:18] LABS: BASO # 0.0 10*3/uL (0.0-0.1); BASO % 0.6 % (0.0-1.0); EOS # 0.3 10*3/uL (0.0-0.4); EOS % 5.3 % (1.0-4.0); MEAN CELL VOLUME 93.1 fl (81.0-99.0); MEAN CORPUSCULAR HGB 29.6 pg (27.0-31.0); MEAN PLATELET VOLUME 10.4 fl (9.6-12.3); MONO # 0.8 10*3/uL (0.1-1.0); MONO % 12.8 % (3.0-9.0); NEUT # 2.8 10*3/uL (2.3-7.9); NEUT % 45.2 % (47.0-73.0); NUCLEATED RED BLOOD CELL 0.0 % (0.0-0.0); NUCLEATED RED BLOOD CELL 0.0 10*3/uL (0.0-0.0); PLATELET COUNT AUTOMATED 282 10*3/uL (130-400); RED CELL DISTRI WIDTH 13.2 % (0-14.5); RETICULOCYTE % 0.70 % (0.50-2.50)
[2025-06-01 12:19] LABS: BILIRUBIN Negative (Negative); BLOOD Negative (Negative); CLARITY Clear (Clear); COLOR Yellow (Yellow); KETONE Negative (Negative); LEUKO ESTERASE Negative (Negative); NITRITE Negative (Negative); PH 5.5 (4.5-8.0); SPECIFIC GRAVITY 1.015 (1.001-1.030); UROBILINOGEN 0.2 E.U./dl (0.0-1.0)
[2025-06-01 12:28] LABS: BACTERIA TRACE
[2025-06-01 13:14] LABS: BUN 12 mg/dl (9-23); GAMMA GLUTAMYL TRANSFERASE 38 U/L (0-38); LDL CHOLESTEROL 130 mg/dL (9-159); SGPT/ALT 10 U/L (5-49); T3 UPTAKE 27.2 % (22.4-36.7); THYROXINE (T4) TOTAL 5.9 ug/dl (4.5-10.9)
[2025-06-01 13:16] LABS: VITAMIN D, 25-HYDROXY 32.9 ng/mL (30-100)
== END | disposition home or self-care (01) ==
LOC: LAB 11:04
PROVIDERS: ATTEND Family Medicine
DX: E55.9 Vitamin D deficiency, unspecified (principal); E78.5 Hyperlipidemia, unspecified; R79.89 Other specified abnormal findings of blood chemistry; R53.83 Other fatigue